=== PATIENT | female | born 1995 | race Caucasian/White ===

== ENCOUNTER 2017-12-02 20:45 | Emergency (ER) | payer BC ==
[~2017-12-02] VITALS: Ht 160 cm; Wt 51.3 kg
--- NOTE | 2017-12-02 21:01 | NUR ---
PT BIBSELF AMBULATORY TO ER BED 2 C/O INTERMITTENT LLQ ABDOMINAL PAIN. +DYSURIA X 4 DAYS. PT AOX3 RR EVEN AND UNLABORED. NO SOB NOTED. NAD NOTED. NO NVD AT THIS TIME. PT GOWNED AND PLACED ON MONITOR. PAC PRUSHA AT BEDSIDE FOR EVAL.
--- NOTE | 2017-12-02 21:45 | NUR ---
URINE COLLECTED. SENT TO LAB
--- NOTE | 2017-12-02 21:53 | NUR ---
PAC PRUSHA AT BEDSIDE FOR WET MOUNT
--- NOTE | 2017-12-02 21:58 | NUR ---
CALLED LAB FOR [employer]Y PLAN SALESPERSON
--- NOTE | 2017-12-02 22:01 | NUR ---
RUTH ANN AT BEDSIDE
[2017-12-02 22:27] LABS: APPEARANCE,URINE CLEAR (CLEAR); BILIRUBIN,URINE 1+ (NEGATIVE); BLOOD, URINE NEGATIVE Ery/uL (NEGATIVE); KETONES,URINE NEGATIVE (NEGATIVE); LEUKOCYTE ESTERASE ,URINE NEGATIVE (NEGATIVE); NITRITE, URINE NEGATIVE (NEGATIVE); PROTEIN,URINE NEGATIVE (NEGATIVE); UGLUCOSE NEGATIVE (NEGATIVE); UROBILINOGEN,URINE 0.2 EU/dL (0.2)
[2017-12-02 22:31] LABS: COLOR,URINE GREEN (YELLOW)
[2017-12-02 22:50] LABS: BACTERIA,URINE Many /HPF (None Seen); RBC,URINE 0-2 /HPF (0-2); SQUAMOUS EPITHELIAL CELL,UR Moderate /HPF (None Seen); WBC,URINE 0-2 /HPF (0-3)
[2017-12-02 23:40] VITALS: BP 126/78
--- NOTE | 2017-12-02 23:41 | NUR ---
Patient discharged to home in stable condition. Written and verbal after care instructions given. Patient verbalizes understanding of instruction. ambulatory with a steady gait
== END 2017-12-02 23:41 | disposition home or self-care (01) ==
LOC: ER 20:53
DX: N83.202 Unspecified ovarian cyst, left side (principal); N39.0 Urinary tract infection, site not specified
CPT/HCPCS: 76856; 81001; 87086; 87210; 99285; A4606; 81000-TC; Z7610